=== PATIENT | male | born 1945 | race Caucasian/White ===

== ENCOUNTER 2025-05-21 11:40 | Outpatient (AMB) | payer MEDICARE, SELFPAY ==
--- NOTE | 2025-05-21 12:24 | A.OFFVIS_ITS ---
Intake Visit Reasons: 6 month f/u Allergies No Known Allergies Allergy (Verified 05/21/25 12:24) Medication List - Last Reconciled 05/21/25 by Carmelita Peterson CNP amitriptyline 25 mg PO BEDTIME 90 days furosemide 40 mg PO DAILY pregabalin 200 mg PO TID 30 days HPI Comments Details: 79-year-old RH man with h/o bladder cancer was here with tremors and c/o bilateral foot and leg numbness and tingling. He was doing okay. He got pacemaker in 01/2025. Pain in legs was controlled with pregabalin and amitriptyline. He could tell if he missed dose. He was walking some and was using cane for longer distances, no falls. Tremors were about the same. No functional impairment. No difficulty eating, drinking, or swallowing. His handwriting was not as neat. [facility] Medical History (Updated 05/21/25 @ 12:27 by Carmelita Peterson CNP) Bladder cancer Surgical History (Updated 05/21/25 @ 13:49 by Carmelita Peterson CNP) S/P cardiac pacemaker procedure Review of Systems Const Denies chills, Denies daytime sleepiness, Denies difficulty sleeping, Denies fatigue, Denies fever(s), Denies frequent falls, Denies headache(s), Denies increased appetite, Denies poor appetite, Denies snoring, Denies weakness, Denies weight gain and Denies weight loss Eyes Denies loss of vision ENT Denies vertigo, Denies dizziness and Denies headache(s) Card Denies chest pain at rest, Denies chest pain with activity, Denies syncope, Denies leg edema and Denies palpitations Resp Denies snoring GI Denies constipation, Denies heartburn, Denies diarrhea and Denies nausea Denies urinary frequency, Denies urinary incontinence and Denies urinary urgency Musc Denies abnormal gait, Reports numbness and Reports tingling Skin/Breast Denies dry skin and Denies rash Neuro Denies abnormal gait, Denies vertigo, Denies dizziness, Denies syncope, Denies frequent falls, Denies headache(s), Denies lack of coordination, Denies loss of vision, Denies memory loss, Reports numbness, Denies restless legs, Denies seizure-like activity, Reports tingling, Denies paresthesias, Reports tremor(s) and Denies weakness Psych Denies anxiety, Denies depression, Denies auditory hallucinations, Denies memory loss, Denies visual hallucinations and Denies suicidal ideation Endo Denies fatigue and Denies palpitations Physical Exam Const Other: General Appearance:? normal, in no acute distress. Skin:? no rashes, no significant birthmarks. Heart:? S1, S2 normal, no murmurs. Lungs:? clear anteriorly and posteriorly. Extremities:? no edema. Psych:? alert, oriented, cognitive function intact, cooperative with exam. Neuro Other: Mental Status:?Normal attention, orientation, memory and affect.? Cranial Nerves:?Pupils are equal, round and reactive to light. External occular muscles are intact. Visual garvey are full. Face is symmetrical. Facial sensations are normal. Tongue is midline. Palate elevates symmetrically. Shoulder shrugging is normal. Hearing to bedside conversation is normal. Motor Examination:?DTRs absent, plantars are flexor. Sensory Exam:?Vibration minimal in feet. Coordination:?No ataxia,?no titubation.? Gait Exam: Within normal limits. Cerebellar Signs:?[id number] with mild tremor. Extrapyramidal System:?No tremor, rigidity with normal facial expressions.? Pronator Drift:?Not present.? Involuntary Movements:?Fine tremors of the outstretched hands. Speech:?Normal.? 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 Assessment & Plan Assessment & Plan (1) Peripheral neuropathy: Code(s): G62.9 - Polyneuropathy, unspecified Category: Medical Qualifiers: Peripheral neuropathy type: polyneuropathy, unspecified Qualified Code(s): G62.9 - Polyneuropathy, unspecified Plan: Continue pregabalin 200mg 1 capsule three times a day. Continue amitriptyline 25mg 1 tablet at bedtime. (2) Benign essential tremor: Code(s): G25.0 - Essential tremor Category: Medical Plan: Tremor was mild and not significantly bothersome, medication was not needed at this time. Plan Meds tried: Gabapentin, Carbamazepine Coding Level of Care Code Est Pt Level 4 (89204) Diagnoses Peripheral polyneuropathy G62.9 Peripheral neuropathy type: polyneuropathy, unspecified Benign essential tremor G25.0
== END 2025-05-21 12:50 | disposition home or self-care (01) ==
PROVIDERS: PCP Internal Medicine; Referring Provider Internal Medicine; Visit Provider Registered Nurse
DX: G62.9 Polyneuropathy, unspecified (principal); G25.0 Essential tremor
CPT/HCPCS: 99214

== ENCOUNTER → 2025-05-21 11:40 | Outpatient (BNVA) | payer MEDICARE, SELFPAY | PROVIDERS: PCP Internal Medicine; Referring Provider Internal Medicine; Visit Provider Registered Nurse | DX: G62.9 Polyneuropathy, unspecified (principal); G25.0 Essential tremor | CPT/HCPCS: 99212 ==